=== PATIENT | female | born 1980 | race African-American/Black ===

== ENCOUNTER 2022-01-29 13:02 | Emergency (ER) | payer SELFPAY ==
[~2022-01-29] VITALS: Ht 167.6 cm; Wt 60.0 kg
[2022-01-29] MEDS ORDERED: SODIUM CHLORIDE 0.9% 1,000 ML IV ONE ×2 (14:00)
[2022-01-29 14:27] LABS: BASOPHILS % 0.6 % (0.0-2.0); EOSINOPHILS % 3.3 % (0.0-5.0); HEMATOCRIT. 27.1 % (36.0-48.0); HEMOGLOBIN. 8.3 g/dL (12.0-16.0); LYMPHOCYTES % 25.5 % (20.0-50.0); MEAN CORPUSCULAR HEMOGLOBIN 20.9 pg (28.0-32.0); MEAN CORPUSCULAR VOLUME 68.1 fL (81.0-99.0); MEAN PLATELET VOLUME 6.6 fl (7.4-10.4); MONOCYTES % 14.9 % (2.0-8.0); NEUTROPHILS % 55.7 % (40.0-76.0); PLATELET 222 x1000/uL (130-400); RED BLOOD CELL COUNT 3.98 mill/uL (4.2-5.4); RED CELL DISTRIBUTION WIDTH 21.4 % (11.6-14.6)
[2022-01-29 14:35] LABS: CHLORIDE 109 mEq/L (98-107)
[2022-01-29 14:47] LABS: ETHANOL BLOOD 313 mg/dL
[2022-01-29 14:51] LABS: HCG SCREEN NEGATIVE
[2022-01-29 14:53] LABS: PLATELET ESTIMATE NORMAL
[2022-01-29 19:57] LABS: *AMPHETAMINES SCREEN URINE NEGATIVE (NEGATIVE); *BARBITURATES SCREEN URINE NEGATIVE (NEGATIVE); *BENZODIAZEPINES SCREEN URINE NEGATIVE (NEGATIVE); CANNABINOID URINE SCREEN NEGATIVE (NEGATIVE); METHADONE URINE SCREEN NEGATIVE (NEGATIVE); OPIATES URINE SCREEN NEGATIVE (NEGATIVE)
[2022-01-29 19:58] LABS: *COCAINE SCREEN URINE PRESUMTIVE POSITIVE (NEGATIVE); PHENCYCLIDINE URINE SCREEN PRESUMTIVE POSITIVE (NEGATIVE)
[2022-01-29] MEDS ORDERED: DIAZEPAM 5 MG/ML 2ML CPJ IM NR (21:30)
[2022-01-29] MEDS ORDERED: HALOPERIDOL LACTATE 5MG/ML VIAL IM NR (21:30)
[2022-01-29] MEDS ORDERED: DIPHENHYDRAMINE 50MG/ML VIAL IM NR (21:30)
[2022-01-29] MEDS ORDERED: DEXAMETHASONE 4MG/ML 1ML VIAL IM ONE (22:00)
[2022-01-30 13:22] VITALS: BP 125/72
== END 2022-01-30 13:23 | disposition home or self-care (01) ==
LOC: EDBD 13:02 → ER 13:02
DX: G93.40 Encephalopathy, unspecified (principal); R45.1 Restlessness and agitation; R00.0 Tachycardia, unspecified
CPT/HCPCS: 36415; 70450; 80053; 80305; 80320; 82962; 84703; 85025; 93005; 96372; 99291; C1893; J1100; J1200; J1630; J3360; J7030; G0480

== ENCOUNTER 2022-02-02 02:19 | Emergency (ER) | payer OTHER ==
[~2022-02-02] VITALS: Ht 165.1 cm; Wt 60.3 kg
[2022-02-02 02:46] VITALS: BP 151/76
== END 2022-02-02 05:37 | disposition home or self-care (01) ==
LOC: ER 02:19
DX: T83.84XA Pain due to genitourinary prosthetic devices, implants and grafts, initial encounter (principal)
CPT/HCPCS: 99281